=== PATIENT | female | born 1980 | race African-American/Black ===

== ENCOUNTER 2016-10-12 18:11 | Emergency (ER) | payer BC, OTHER ==
[~2016-10-12 18:11] MED LIST: ALDACTONE PO; ALDACTONE100 MG PO; AMOXICILLIN PO; FLAGYL PO; METFORMIN PO; NAPROXEN500 M1 PO; PRENATAL1 TA1 PO; PROMETHAZI6.25 MG/5 PO; ROBAXIN500 MG PO; VOLTAREN75 MG PO
== END 2016-10-12 19:24 | disposition home or self-care (01) ==
LOC: SED 18:11
DX: R51 Headache (principal); I10 Essential (primary) hypertension; J32.9 Chronic sinusitis, unspecified; E11.9 Type 2 diabetes mellitus without complications; Z79.84 Long term (current) use of oral hypoglycemic drugs
CPT/HCPCS: 82947; 96361; 96374; 96375; 99284; J1885; J2405